=== PATIENT | male | born 1980 | race Caucasian/White ===

== ENCOUNTER 2016-11-26 09:29 | Emergency (ER) | payer SELFPAY ==
[~2016-11-26] VITALS: Ht 172.7 cm; Wt 90.7 kg
[~2016-11-26 09:29] MED LIST: CYCL10TA45 PO; HYDR-757 PO
--- NOTE | 2016-11-26 09:57 | ED Back Pain ---
General Chief Complaint: Back Problems Stated Complaint: BACK INJ Nursing Triage Note: c/o low back pain. States he was moving boxes yesterday and tweaked his back. Nursing Sepsis Screen: No Definite Risk Source of Information: Patient History of Present Illness Time Seen by Provider: 09:45 Initial Comments PT ARRIVES VIA POV C/O LOWER BACK PAIN PT STATES HE HAD A PREVIOUS INJURY TO HIS BACK--CLAIMS HE FELL 35 FEET AND INJURED HIS BACK IN 2012. NO SURGERY PT STATES YESTERDAY HE "INFLAMED IT" WHILE MOVING BOXES PT STATES "AND IT NEED A DR-TRYING TO FIND A DR" --PT CLAIMS HE IS IN PROCESS OF MOVING HERE FROM [place]. PT ALSO STATES "AND I NEED REFILLS ON ALL MY MEDICINES--I'M OUT OF ALL OF THEM" -CLAIMS HE HAS BEEN OUT OF ALL MEDICATIONS X 2 DAYS--STATES HE TAKES MEDICATION FOR HIGH BLOOD PRESSURE, GABAPENTIN, OXYCODONE AND IBUPROFEN "I'M TRYING TO GET ON DISABILITY" NO PARESTHESIAS OR MOTOR DEFICITS NO RADIATION OF PAIN NO BOWEL OR BLADDER FUNCTION DIFFICULTIES PT STATES HIS DR. IN [place] WAS DR. REYES--STATES "HE WON'T SEE ME ANY MORE BECAUSE I MOVED OUT OF [facility] AND HE MOVED HIS OFFICE IN [place] TO [place] AND HE CAN'T SEE ME ANYMORE" PT STATES HE LAST SAW DR. LEE 1 1/2 MONTHS AGO, AND HE WROTE RX'S AT THAT TIME FOR ALL OF HIS MEDICATIONS PT CLAIMS HE HAS NOT BEEN SEEN BY ANYONE SINCE THAT TIME PER [facility], PT FILLED RX FOR TRAMADOL ON 11/23/16 BY INO KRISHNAMURTHY IN [place], [place] AND WAS FILLED AT [facility] IN [place] PT HAS HAD RX'S FOR OXYCODONE FILLED ON 08/23/16 AND 08/25/16 BY 2 DIFFERENT PROVIDERS IN [place], AND FILLED AT [facility] IN [place] PT HAD RX'S FOR OXYCODONE FILLED IN MAY AND JUNE OF THIS YEAR BY DR. REYES FOR #90 PILLS EACH TIME, AND HAD THEM FILLED AT 2 DIFFERENT PHARMACIES- ONE AT [address] [place] [address] IN [place], AND ONE FILLED AT [facility] IN [place]. Allergies and Home Medications Allergies Coded Allergies: No Known Drug Allergies (Unverified , 11/13/13) Home Medications Cyclobenzaprine Hcl 10 Mg Tablet, 5 MG PO TID, #9 Prescribed by: WAGNER MCKOY on 11/13/13 1259 Hydrocodone Bit/Acetaminophen 1 Each Tablet, 1 EA PO Q6H PRN for MILD PAIN, #10 Prescribed by: WAGNER MCKOY on 11/13/13 1259 Constitutional: no symptoms reported Respiratory: no symptoms reported Cardiovascular: no symptoms reported Gastrointestinal: no symptoms reported Genitourinary: no symptoms reported Musculoskeletal: see HPI, back pain Skin: no symptoms reported Psychiatric/Neurological: No Symptoms Reported Past Lxohbpn-Wkyake-Lqrzud Hx Patient Social History Alcohol Use: Denies Use Recreational Drug Use: No (DENIES) Smoking Status: Current Everyday Smoker (<1/2 PPD) Type Used: Cigarettes, Smokeless Tobacco Recent Foreign Travel: No Contact w/Someone Who Travel: No Recent Infectious Disease Expo: No Surgeries HX Surgeries: No Respiratory Hx Respiratory Disorders: No Cardiovascular Hx Cardiac Disorders: Yes Cardiac Disorders: Hypertension Neurological Hx Neurological Disorders: No Genitourinary Hx Genitourinary Disorders: No Gastrointestinal Hx Gastrointestinal Disorders: No Musculoskeletal Hx Musculoskeletal Disorders: Yes Musculoskeletal Disorders: Chronic Back Pain Endocrine Hx Endocrine Disorders: No HEENT HX ENT Disorders: No Cancer Hx Cancer: No Psychosocial Hx Psychiatric Problems: No Integumentary HX Skin/Integumentary Disorder: No Blood Transfusions Hx Blood Disorders: No Physical Exam Vital Signs Vital Sign - Last 12Hours 11/26/16 09:46 Temp 97.5 Pulse 70 Resp 16 B/P (MAP) 158/118 Pulse Ox 98 O2 Delivery Room Air Capillary Refill : Less Than 3 Seconds General Appearance: No Apparent Distress, WD/WN, Other (LAYING FLAT, LEGS CROSSED AT ANKLES AND SMILING. WALKS UPRIGHT AND MOVES QUICKLY WITHOUT DIFFICULTY. ) HEENT: Other (POOR DENTITION) Neck: Normal Inspection, Non Tender Cardiovascular: Regular Rate, Rhythm, No Edema, No Murmur, Normal Peripheral Pulses Respiratory: Normal Breath Sounds, No Accessory Muscle Use Peripheral Pulses: 2+ Dorsalis Pedis (R), 2+ Left Dors-Pedis (L) Gastrointestinal: Non Tender, Soft Back: Other (MINIMAL LUMBAR PARAVERTEBRAL MUSCLE TENDERNESS. 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 Departure Impression Impression: Primary Impression: REPORTED CHRONIC BACK PAIN Disposition: HOME, SELF-CARE Condition: Stable Departure-Patient Inst. Referrals: NO,LOCAL PHYSICIAN (PCP/Family) Primary Care Physician Patient Instructions: MANAGING YOUR CHRONIC PAIN, Low Back Pain (DC) Add. Discharge Instructions: MOIST HEAT TO AREA AT 20 MINUTE INTERVALS TYLENOL AND MOTRIN NEEDED FOR PAIN ESTABLISH WITH DRDina OF CHOICE FOR FURTHER CARE AND MEDICATION REFILLS All discharge instructions reviewed with patient and/or family. Voiced understanding. Work/School Note: Local Medical Staff Listing JESSE WILLS DO Nov 26, 2016 09:57
[2016-11-26] MEDS ORDERED: KETOROLAC 60 MG/2 ML VIAL IM ONE (10:00)
[2016-11-26 10:06] VITALS: BP 148/102
--- OUTSIDE RECORDS SUMMARY | 2016-12-03 21:43 | XMS REPORT | Continuity of Care Document ---
Author Author [facility] Organization [facility] Address Unknown Phone Unavailable Allergies Active Description Code Type Severity Reaction Onset Reported/Identified Relationship to Patient Clinical Status Yes No Known Medication Allergies Drug N/A N/A Medications Problems Procedures Results Encounters ACCT No. Visit Date/Time Discharge Status Pt. Type Provider Facility Loc./Unit Complaint [id number] 08/25/2016 19:59:00 2016 21:00:00 DIS Emergency ALEISHA WIGGINS [facility] ED Back injury follow up [id number] 08/23/2016 14:48:00 2016 15:25:00 DIS Emergency NIRU CONLEY [facility] ED back pain
--- OUTSIDE RECORDS SUMMARY | 2016-12-03 21:43 | XMS REPORT | Clinical Summary ---
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 Problem Name Problem Code Onset Date Status Entry Date Provider Comment Standard Description Annotate Chronic pain - on daily narcotics 338.29 Active Ken Hancock MD Other chronic pain Obesity 278.00 Active Ken Hancock MD Obesity , unspecified Elevated blood pressure 796.2 Active Ken Hancock MD Elevated blood pressure reading without diagnosis of hypertension Medication List Medication Instructions Start Date Stop Date Generic Name NDC Status Provider Patient Instruction IBUPROFEN 800 MG ORAL TABS Take one (1) tablet by mouth three times a day as needed IBUPROFEN 83606901932 Active Ken Hancock MD Active OXYCODONE HCL 15 MG ORAL TABS Take one (1) tablet by mouth four times a day as needed for pain OXYCODONE HCL 44372878077 Active Ken Hancock MD Active GABAPENTIN 100 MG CAPS Take one (1) tablet by mouth three times a day GABAPENTIN 87181953848 Active Ken Hancock MD Active Vital Signs Date Name Value Unit Range Description blood pressure, diastolic - 8462-4 87 mm[Hg] BP sanchez blood pressure, systolic - 8480-6 155 mm[Hg] BP sys height E&M - 8302-2 68 [in_us] Bdy height pulse rate E&M - 8867-4 76 /min Heart rate temperature E&M 97.6 [degF] Body temperature weight E&M - 3141-9 265 [lb_av] Weight Measured Encounters Code Encounter Date Provider Facility [id number] Level 3 New Patient 16:10:27 CDT Ken Hancock MD [facility]
--- OUTSIDE RECORDS SUMMARY | 2016-12-03 21:43 | XMS REPORT | Clinical Summary ---
Author Author Admin, JOAQUÍN Organization [facility] Address Unknown Phone Unavailable Allergies, Adverse Reactions, Alerts Allergy Name Reaction Description Start Date Severity Status Provider No Known Allergies Tatianagomez Ramsey LORIE Conditions or Problems Problem Name Problem Code [...] three times a day as needed IBUPROFEN 75473017477 Active Ken Hancock MD Active OXYCODONE HCL 15 MG ORAL TABS Take one (1) tablet by mouth four times a day as needed for pain OXYCODONE HCL 02835859285 Active Ken Hancock MD Active GABAPENTIN 100 MG CAPS Take one (1) tablet by mouth three times a day GABAPENTIN 05526859274 Active Ken Hancock MD Active Vital Signs [...] Measured Encounters Code Encounter Date Provider Facility [id number] Level 3 New Patient 16:10:27 CDT Ken Hancock MD [facility]
--- OUTSIDE RECORDS SUMMARY | 2016-12-03 21:43 | XMS REPORT | Clinical Summary ---
Author Author Admin, [facility] Organization [facility] Address Unknown Phone Unavailable Allergies, Adverse Reactions, Alerts Allergy Name Reaction Description Start Date Severity Status Provider Allergies Unknown Conditions or Problems Problem Name Problem Code Onset Date Status Entry Date Provider Comment Standard Description Annotate Problems Unknown Active Medication List Medication Instructions Start Date Stop Date Generic Name NDC Status Provider Patient Instruction Drug Treatment Unknown - unknown
--- OUTSIDE RECORDS SUMMARY | 2016-12-03 21:43 | XMS REPORT | Clinical Summary ---
Author Author Admin, JOAQUÍN Organization [facility] Address Unknown Phone Unavailable Allergies, Adverse Reactions, [...] three times a day as needed IBUPROFEN 68978289099 Active Ken Hancock MD Active OXYCODONE HCL 15 MG ORAL TABS Take one (1) tablet by mouth four times a day as needed for pain OXYCODONE HCL 12822282165 Active Ken Hancock MD Active GABAPENTIN 100 MG CAPS Take one (1) tablet by mouth three times a day GABAPENTIN 50791999590 Active Ken Hancock MD Active Vital Signs [...] Measured Encounters Code Encounter Date Provider Facility CPT-75429 Level 3 New Patient 16:10:27 CDT Ken Hancock MD [facility]
--- OUTSIDE RECORDS SUMMARY | 2016-12-03 21:43 | XMS REPORT | Clinical Summary ---
Author Author Admin, JOAQUÍN Organization [facility] Address Unknown Phone Unavailable Allergies, Adverse Reactions, [...] three times a day as needed IBUPROFEN 05200803253 Active Ken Hancock MD Active OXYCODONE HCL 15 MG ORAL TABS Take one (1) tablet by mouth four times a day as needed for pain OXYCODONE HCL 26076050727 Active Ken Hancock MD Active GABAPENTIN 100 MG CAPS Take one (1) tablet by mouth three times a day GABAPENTIN 79577784518 Active Ken Hancock MD Active Vital Signs [...] Measured Encounters Code Encounter Date Provider Facility CPT-70949 Level 3 New Patient 16:10:27 CDT Ken Hancock MD [facility]
--- OUTSIDE RECORDS SUMMARY | 2016-12-03 21:43 | XMS REPORT | Clinical Summary ---
Author Author Admin, JOAQUÍN Organization [facility] Address Unknown Phone Unavailable Allergies, Adverse Reactions, [...] three times a day as needed IBUPROFEN 76867028115 Active Ken Hancock MD Active OXYCODONE HCL 15 MG ORAL TABS Take one (1) tablet by mouth four times a day as needed for pain OXYCODONE HCL 95571731191 Active Ken Hancock MD Active GABAPENTIN 100 MG CAPS Take one (1) tablet by mouth three times a day GABAPENTIN 59023634336 Active Ken Hancock MD Active Vital Signs [...] Measured Encounters Code Encounter Date Provider Facility CPT-27782 Level 3 New Patient 16:10:27 CDT Ken Hancock MD [facility]
== END 2016-11-26 10:06 | disposition home or self-care (01) ==
LOC: EDUNIT# 09:29 → ER 09:32
DX: G89.29 Other chronic pain (principal); M54.5 Low back pain; I10 Essential (primary) hypertension; F17.210 Nicotine dependence, cigarettes, uncomplicated
CPT/HCPCS: 96372; 99283